=== PATIENT | female | born 1990 | race Two or more races ===

== ENCOUNTER 2019-01-24 16:25 | Emergency (ER) | payer SELFPAY ==
[~2019-01-24] VITALS: Ht 157.5 cm; Wt 67.0 kg
[2019-01-24 16:34] VITALS: BP 137/78
== END 2019-01-24 18:05 | disposition home or self-care (01) ==
LOC: ER 16:25
DX: R00.2 Palpitations (principal)
CPT/HCPCS: 81025; 93005; 99283